=== PATIENT | female | born 1985 | race Caucasian/White ===

== ENCOUNTER 2017-03-08 06:00 | Inpatient (IN) ==
[2017-03-08] MEDS ORDERED: Naloxone 0.4 MG/ML INJ IVP PRN (06:16)
[2017-03-08] MEDS ORDERED: miSOPROStol 25 MCG TABLET VG PRN (06:16)
[2017-03-08] MEDS ORDERED: Metoclopramide 10 MG/2 ML VIAL IVP PRN (06:16)
[2017-03-08] MEDS ORDERED: Famotidine 20 MG/2 ML VIAL IVP PRN (06:16)
[2017-03-08] MEDS ORDERED: Ondansetron 4 MG/2 ML VIAL IVP PRN (06:16)
[2017-03-08] MEDS ORDERED: Ringers Solution, Lactated 1,000 ML IVC SCH (06:30)
[2017-03-08 06:54] LABS: Basophils # 0.1 K/mcL (0.0-0.2); Basophils % 0.5 %; Eosinophils # 0.1 K/mcL (0.0-0.6); Eosinophils % 1.1 %; Hematocrit 35.7 % (35.3-44.9); Hemoglobin 12.4 g/dL (11.5-15.4); Immature Granulocytes % 2.5 % (0-4); Lymphocytes # 2.3 K/mcL (0.6-4.6); Lymphocytes % 20.5 %; Mean Corpuscular HGB Conc 34.7 g/dL (31.6-35.5); Mean Corpuscular Hemoglobin 32.5 pg (28.0-33.3); Mean Corpuscular Volume 93.5 fL (83.0-100.0); Mean Platelet Volume 9.3 fL (9.4-12.4); Monocytes # 1.2 K/mcL (0.0-1.3); Monocytes % 10.5 %; Neutrophils # 7.1 K/mcL (1.6-8.9); Platelet Count 262 K/mcL (140-400); Red Blood Count 3.82 M/mcL (3.82-4.97); Red Cell Distribution Width 13.2 % (11.5-14.5); Segmented Neutrophils % 64.9 %
--- NOTE | 2017-03-08 07:51 | OB/GYN History & Physical ---
Date of Encounter: 03/08/17 Time of Encounter: 07:45 Assessment and Plan (1) and not yet delivered in third trimester Current visit: Yes Status: Acute (2) 39 weeks gestation of Current visit: Yes Status: Acute (3) Elective induction of labor planned Current visit: Yes Status: Acute We will induce with Montes catheter and Cytotec plan is to anticipate vaginal deliver History of Present Illness HPI: Ms. Canas is a 31 year old female 3 para 2 at 39-5/7 weeks who presented to labor and delivery for induction of labor secondary to term . Patient's course has been unremarkable. Patient's been having occasional contractions but nothing time of all denies any leaking of fluid good movement. Patient is Rh- and GBS negative rubella positive Past Med Surg Social Fam HX - Past Medical History Source: patient, old records reviewed Medical history: no medical history Psychiatric history: depression - Past Surgical History Surgical History: no surgical history - Social History Smoking Status: Never smoker Smokeless Tobacco Status: No Alcohol use: occasionally Drug use: none Occupational status: unemployed Current living situation: Home - Independent Activity Level: Independent ambulation Recent Out of Country Travel Within the Last 8 Weeks: No Exposure or Possible Exposure to Illness During Travel: No - Family History Mother Age: 52 Living Status: Still Living Hx Family Cardiac Disorders: Yes (htn) Hx Family Respiratory Disorders: No Hx Family Cancer: No Hx Family GI Disorders: No Hx Family Genitourinary Disorders: No Hx Family Endocrine Disorder: Yes (diabetic) Hx Family Musculoskeletal Disorders: No Hx Family Neuromuscular Disorders: No Hx Family Neurologic Disorders: No Hx Family HEENT Disorders: No Hx Family Autoimmune Disorders: No Hx Family Reproductive Disorders: No Hx Family Psychosocial Disorders: No Hx Family Medical Disorders: No - Additional Family History Additional family history: Family history noncontributory Obstetrical History - Pregnancies : 3 Para: 2 Livin Medications and Allergies Formula Tablet 1 tab PO DAILY 03/08/17 [History] Protonix 10 mg PO DAILY 03/08/17 [History] 3 Allergy/AdvReac Type Severity Reaction Status Date / Time No Known Allergies Allergy Verified 08/12/15 09:11 Exam - Vital Signs Vital signs: Initial Vital Signs Temp Pulse Resp BP 97 F L 120 16 147/80 03/08/17 06:35 03/08/17 06:35 03/08/17 06:35 03/08/17 06:35 - Constitutional Constitutional: well developed, well nourished, no acute distress, obese - HEENT HEENT: PERRL, Mucus Membranes Moist - Neck Neck exam: full ROM - Lungs Respiratory exam: CTAB - Cardiovascular Cardiovascular exam: irregular rhythm - Abdomen Abdomen: Present: gravid ( heart tones 140s reactive occasional contractions) - Cervix Dilation: 2 Effacement: 70 Station: -2 (The Montes catheter placed and Cytotec 25 g placed vaginally) Results Result Diagrams: 03/08/17 06:25 Abnormal lab results MPV 9.3 fL (9.4-12.4) L 03/08/17 06:25 All other labs normal. - VTE Reasons for not Prescribing Prophylaxis: Treatment not Indicated - Low risk for VTE
[2017-03-08 09:46] LABS: Amphetamine Screen,Urine Negative ng/mL (Cutoff=1000); Barbiturate Screen,Urine Negative ng/mL (Cutoff=200); Benzodiazepines Screen,Urine Negative ng/mL (Cutoff=200); Cannabinoid Screen,Urine Negative ng/mL (Cutoff = 50); Cocaine Screen,Urine Negative ng/mL (Cutoff= 300); Opiate Screen,Urine Negative ng/mL (Cutoff=300); Phencyclidine Screen,Urine Negative ng/mL (Cutoff=25)
--- NOTE | 2017-03-08 09:53 | OB Labor Progress Note ---
Date of Encounter: 03/08/17 Time of Encounter: 09:51 Labor Progress Note - Subjective Subjective: Patient in bed. Discussed POC with patient. Patient denies any questions or concerns. - Cervix Cervix: 4/80/-1 - Heart Tones Heart Tones: 135 bpm moderate variability +15x15 accels no decels noted. cAt. 1 tracing - Alturas Alturas: 5-6 min apart - Interventions Interventions: SVE, AROM moderate amount of clear fluid. IUPC placed without difficulty. FSE also placed but would not read FHR. - Plan Plan: Continue labor management. Nubain or epidural for pain management.
[2017-03-08] MEDS ORDERED: Epidural Premix (fent/bupiv) 110 ML EP ONE ×2 (10:07→18:01)
[2017-03-08] MEDS ORDERED: Epidural Premix (fent/bupiv) 110 ML EP SCH (11:15)
--- NOTE | 2017-03-08 11:49 | Anesthesia Evaluation PreOp ---
Date of Encounter: 03/08/17 Time of Encounter: 10:15 - Past History Planned Operation: KRISTINE Cardiac History: Denies any Significant Hx Pulmonary History: Denies Any Significant HX BUSINESS OPERATIONS ANALYST History: Denies Any Significant HX Other Medical History: Denies Any Significant HX Anesthesia History: No Prior Anesthetic Complications : Yes Test: Positive Alcohol Use: none, occasionally Drug use: none Medications and Allergies Formula Tablet 1 tab PO DAILY 03/08/17 [History] Protonix 10 mg PO DAILY 03/08/17 [History] 3 Allergy/AdvReac Type Severity Reaction Status Date / Time No Known Allergies Allergy Verified 08/12/15 09:11 - Meds/Allergy Pre-op Review Medications Reviewed: Yes Allergies Reviewed: Yes Beta Blockers on Current Med List: No Anesthesia Results - Labs 03/08/17 06:25 Anesthesia Exam Height: 66 Weight: 126KG NPO (# of Hours): MN Pain Scale: 0 - HEENT Pupil (Motor): Pupils equal Mallampati: II Oral Opening: Greater than 3 - BUSINESS OPERATIONS ANALYST LOC: Oriented BUSINESS OPERATIONS ANALYST Motor: Normal RUE, Normal LUE, Normal RLE, Normal LLE, Normal Face BUSINESS OPERATIONS ANALYST Sensory: Normal: RUE, LUE, RLE, LLE, Face - Cardiac Rhythm: Regular Murmur: None JVD: No Carotid Bruit: No - Pulmonary Breath Sounds: bilateral Clear Respiratory Effort: Symmetrical Anesthesia Assess/Plan ASA Score: 2 Modified Floridalma Scale for Level of Consciousness: Cooperative, oriented, and tranquil Anesthetic Plan: Regional Autologous Blood: No Monitoring Plan: Standard Monitors
--- NOTE | 2017-03-08 11:53 | Anesthesia Procedures ---
Date of Encounter: 03/08/17 Time of Encounter: 10:15 Procedures: Anesthesia - Epidural/Spinal Patient ID/Chart reviewed: Yes Patient examined: Yes OB Eval: Gestational age: 39 OB Eval: : 4 OB Eval: Hx Para: 3 OB Eval: Contractions: Stressed pattern Consent Obtained: Yes Supplemental Oxygen: None/Room Air Site Prep: Aseptic Technique, Sterile prep and drape, Povidone-Iodine 1% Patient position: upright Local Anesthetic: Lidocaine 1% Amount of Local Anesthetic used: 3 Touhy Needle Gauge: 18 Touhy Needle Depth (cm): 6 Catheter Depth at Skin (cm): 9 Test Dose Result: Negative Infusion Med: 0.125% Bupivacaine w/ 2 mcg/ml Fentanyl Infusion Rate (mls/hr): [address]: Tegaderm Interspace Used: L4-L5 Loss of Resistance ([place]): Yes Blood: No CSF: No Paresthesia: No Vitals + FHT's: stable throughout
--- NOTE | 2017-03-08 12:54 | OB Labor Progress Note ---
Date of Encounter: 03/08/17 Time of Encounter: 12:50 Labor Progress Note - Subjective Subjective: Patient is comfortable with epidural and Monets catheters out - Cervix Cervix: 5/80/-3 - Heart Tones Heart Tones: Heart tones 140s reactive - Mooar Mooar: Contractions every 3-5 minutes irregular - Plan Plan: Continue current care and anticipate vaginal delivery patient might need augmentation with Pitocin if contractions do not get closer
[2017-03-08] MEDS ORDERED: Oxytocin 20 units/ LR 1000 mL 20 UNIT/1,000 ML BAG IVC SCH ×2 (17:00→22:49)
--- NOTE | 2017-03-08 22:10 | OB/GYN Procedure Note ---
Delivery - Delivery Date: 03/08/17 Provider: Edgardo De La Fuenet Intrapartum events: none Delivery induction: barrios, misoprostol Delivery augmentation: rupture of membranes Delivery monitor: external FHT, external uterine, internal FHT, internal uterine Anesthesia: epidural Estimated Blood Loss: 100 - Infant (s) Infant A Infant Delivery Date: 03/08/17 Delivery Time: 21:04 Presentation: vertex Position: ERIKA Route of delivery: Gender: Male Viability: Viable Pounds: 9 Ounces: 2 Weight Gram: 4.135 kg at 1 minute: 8 at 5 mins: 9 Shoulder Dystocia: encountered Shoulder Dystocia Maneuvers: Ismael maneuver Specimens collected: cord blood Placenta: spontaneous Cord: nuchal cord, 3 umbilical vessels, nuchal reduced - Repair Episiotomy: none Laceration Description: None - Complications Delivery complications: none Delivery comments: Patient is a 31-year-old 3 para 2 at 39-5/7 weeks who is brought in for an induction labor secondary with favorable cervix. Patient has a history of a large baby with previous with a dystocia last ultrasound placed the baby at approximately the same gestational weight and recommended we get her delivered around the due date. Patient was brought to labor and delivery where Barrios catheter and Cytotec was placed. Barrios catheter fell out within a couple hours patient did receive an epidural when she was artificially ruptured with clear fluid. Patient progressed to complete started having some deep variable decelerations we had the patient push but the baby was not coming down and appeared to be in an occiput posterior presentation. We able to get the baby to recover get the patient out of the stirrups and allowed the patient to labor down some more. She continued to have variables then started having low deep variables we get the patient back up in the stirrups this time patient was able to push more effectively and was able to bring the head down. After approximately 10 minutes of pushing patient delivered a viable male in right occiput anterior presentation at 2104. There was a nuchal cord 1 loose and reduced it was no meconium the infant was bulb suctioned on the abdomen. Apgars were 8 at 1 minute, 9 at 5 minutes, weight was 9 lbs. 2 oz. We did have a shoulder dystocia reduced with Ismael maneuver. Placenta was delivered spontaneously with a three-vessel cord, cop examiner Dr. De La Fuente, anesthesia epidural, estimated blood loss was 100 mL. Perineum cervix and vagina was well visualized intact. Patient tolerated the delivery well she will be observed one hour before being taken floor. - Disposition Mom disposition: stable in LDR disposition: stable in LDR
[2017-03-08] MEDS ORDERED: Acetaminophen 325 MG TABLET PO PRN (22:49)
[2017-03-08] MEDS ORDERED: Measles/Mumps/Rubella Vacc 0.5 ML VIAL SQ PRN (22:49)
[2017-03-08] MEDS ORDERED: Rho Immune Globulin 1,500 UNIT SYRINGE IM PRN (22:49)
[2017-03-09] MEDS: Ibuprofen 600 MG TABLET PO PRN ×3 (00:42→20:09)
[2017-03-09 06:52] LABS: Basophils % 0.2 %; Eosinophils % 0.2 %; Hematocrit 33.2 % (35.3-44.9); Hemoglobin 11.2 g/dL (11.5-15.4); Immature Granulocytes % 1.3 % (0-4); Lymphocytes # 1.7 K/mcL (0.6-4.6); Mean Corpuscular HGB Conc 33.7 g/dL (31.6-35.5); Mean Corpuscular Hemoglobin 32.3 pg (28.0-33.3); Mean Corpuscular Volume 95.7 fL (83.0-100.0); Mean Platelet Volume 9.3 fL (9.4-12.4); Monocytes # 1.5 K/mcL (0.0-1.3); Monocytes % 8.7 %; Neutrophils # 13.9 K/mcL (1.6-8.9); Platelet Count 206 K/mcL (140-400); Red Blood Count 3.47 M/mcL (3.82-4.97); Red Cell Distribution Width 13.5 % (11.5-14.5); Segmented Neutrophils % 79.6 %
[2017-03-09] MEDS ORDERED: NON-FORMULARY MEDICATION 1 EACH EACH (Prenatal Formula Tablet 1 TAB) PO SCH (09:00)
[2017-03-09] MEDS: Prenatal Vit/FA 1 EACH TABLET PO SCH (09:29)
--- NOTE | 2017-03-09 14:29 | Electrocardiograph Report ---
[place] [id number] Test Date: 2017-03-09 [facility] Room: [facility] Gender: F Top Carrier: : 1985 Requested By: Faizan Hager Order Number: [id number] Reading MD: Christy Fagan Measurements Intervals [place] Rate: 96 P: 65 WV: 148 QRS: 42 QRSD: 73 T: 28 QT: 319 QTc: 373 Interpretive Statements SINUS RHYTHM Electronically Signed On 03-09-2017 14:28:27 EDT by Christy Fagan
--- NOTE | 2017-03-09 15:04 | Discharge Summary ---
Date of Encounter: 03/09/17 Time of Encounter: 08:30 - Discharge Diagnosis (1) 39 weeks gestation of Priority: Primary Status: Acute (2) Vaginal delivery Priority: Primary Status: Acute (3) anemia Priority: Primary Status: Acute - Discharge Medications Prescriptions: Ibuprofen [Motrin] 600 mg PO Q6HR PRN #60 tablet PRN Reason: Cramping Docusate [Colace] 100 mg PO BID #30 capsule Ferrous Sulfate 325 mg PO DAILY #30 tablet Polyethylene Glycol 3350 [MiraLAX] 17 gm PO DAILY PRN #10 powd.pack PRN Reason: Constipation Home Medications: Formula Tablet 1 tab PO DAILY 03/08/17 [History] Protonix 10 mg PO DAILY 03/08/17 [History] Docusate [Colace] 100 mg PO BID #30 capsule 03/09/17 [Rx] Ferrous Sulfate 325 mg PO DAILY #30 tablet 03/09/17 [Rx] Ibuprofen [Motrin] 600 mg PO Q6HR PRN #60 tablet 03/09/17 [Rx] Polyethylene Glycol 3350 [MiraLAX] 17 gm PO DAILY PRN #10 powd.pack 03/09/17 [Rx ] Allergies/Adverse Reactions: 3 Allergy/AdvReac Type Severity Reaction Status Date / Time No Known Allergies Allergy Verified 08/12/15 09:11 Data Procedures and tests throughout hospitalization: Laboratory Tests 03/08/17 03/08/17 03/08/17 06:25 06:25 22:25 WBC 11.0 RBC 3.82 Hgb 12.4 Hct 35.7 MCV 93.5 MCH 32.5 MCHC 34.7 RDW 13.2 Plt Count 262 MPV 9.3 L Immature Gran % 2.5 Seg Neutrophils % 64.9 Lymphocytes % 20.5 Monocytes % 10.5 Eosinophils % 1.1 Basophils % 0.5 Neutrophils # 7.1 Lymphocytes # 2.3 Monocytes # 1.2 Eosinophils # 0.1 Basophils # 0.1 Urine Opiates Screen Negative Ur Barbiturates Screen Negative Ur Phencyclidine Scrn Negative Ur Amphetamines Screen Negative U Benzodiazepines Scrn Negative Urine Cocaine Screen Negative U Marijuana (THC) Screen Negative Screen NEGATIVE Baby's Blood Type O RH POSITIVE Mother's Blood Type O RH NEGATIVE Rhogam Indicated YES Rhogam Req for Mother 1 03/09/17 06:31 WBC 17.4 H D RBC 3.47 L Hgb 11.2 L Hct 33.2 L MCV 95.7 MCH 32.3 MCHC 33.7 RDW 13.5 Plt Count 206 MPV 9.3 L Immature Gran % 1.3 Seg Neutrophils % 79.6 Lymphocytes % 10.0 Monocytes % 8.7 Eosinophils % 0.2 Basophils % 0.2 Neutrophils # 13.9 H Lymphocytes # 1.7 Monocytes # 1.5 H Eosinophils # 0.0 Basophils # 0.0 Urine Opiates Screen Ur Barbiturates Screen Ur Phencyclidine Scrn Ur Amphetamines Screen U Benzodiazepines Scrn Urine Cocaine Screen U Marijuana (THC) Screen Screen Baby's Blood Type Mother's Blood Type Rhogam Indicated Rhogam Req for Mother Labs on day of discharge: Labs from last 24 hours 03/09/17 03/08/17 06:31 22:25 WBC 17.4 H D RBC 3.47 L Hgb 11.2 L Hct 33.2 L MCV 95.7 MCH 32.3 MCHC 33.7 RDW 13.5 Plt Count 206 MPV 9.3 L Immature Gran % 1.3 Seg Neutrophils % 79.6 Lymphocytes % 10.0 Monocytes % 8.7 Eosinophils % 0.2 Basophils % 0.2 Neutrophils # 13.9 H Lymphocytes # 1.7 Monocytes # 1.5 H Eosinophils # 0.0 Basophils # 0.0 Screen NEGATIVE Baby's Blood Type O RH POSITIVE Mother's Blood Type O RH NEGATIVE Rhogam Indicated YES Rhogam Req for Mother 1 Date of admission: 03/08/17 06:09 Primary care physician: Rubin Ambriz MD Consults: 03/08/17 22:49 Consult to Talent Acquisition Partner [CONS] Routine Comment: Vaginal delivery, consult needed Discharging clinician: Faizan Hager Anticipated date of discharge: 03/09/17 - Discharge Instructions Follow Up With: Rubin Ambriz MD [Primary Care Provider] - Hospital Course Reason for admission: induction of labor Delivery: Episiotomy: none Laceration: none Other procedures: none complications: none Discharge diagnosis: IUP at term delivered [place] baby: male Hospital course: Patient is a 31-year-old 3 para 3 that was at 39-5/7 weeks who was brought in for an induction labor secondary with favorable cervix. Patient has a history of a large baby with previous with a dystocia last ultrasound placed the baby at approximately the same gestational weight and recommended we get her delivered around the due date. Patient was brought to labor and delivery where Montes catheter and Cytotec was placed. Montes catheter fell out within a couple hours patient did receive an epidural when she was artificially ruptured with clear fluid. Patient progressed to complete started having some deep variable decelerations we had the patient push but the baby was not coming down and appeared to be in an occiput posterior presentation. We able to get the baby to recover get the patient out of the stirrups and allowed the patient to labor down some more. She continued to have variables then started having low deep variables we get the patient back up in the stirrups this time patient was able to push more effectively and was able to bring the head down. After approximately 10 minutes of pushing patient delivered a viable male infant in right occiput anterior presentation at 2104. There was a nuchal cord 1 loose and reduced it was no meconium the infant was bulb suctioned on the abdomen. Apgars were 8 at 1 minute, 9 at 5 minutes, infant weight was 9 lbs. 2 oz. We did have a shoulder dystocia reduced with Ismael maneuver. Placenta was delivered spontaneously with a three-vessel cord, business objects analyst Dr. De La Fuente, anesthesia epidural, estimated blood loss was 100 mL. Perineum cervix and vagina was well visualized intact. Patient tolerated the delivery well she will be observed one hour before being taken floor. Time Attestation: Total time spent providing and/or coordinating discharge services: Exam - Constitutional Vitals: Temp Pulse Resp BP Pulse Ox 97.8 F 100 14 109/64 99 03/09/17 04:30 03/09/17 04:30 03/09/17 04:30 03/09/17 04:30 03/09/17 04:30
--- NOTE | 2017-03-09 15:30 | OB/GYN Progress Note ---
Date of Encounter: 03/09/17 Time of Encounter: 08:30 - Assessment and Plan (1) Chest pain Current Visit: Yes Status: Acute Given the description fits the criteria for typical chest pain, an EKG was ordered and revealed normal sinus rhythm with no changes indicative of ischemia. Qualifiers: Qualified Code(s): R07.9 - Chest pain, unspecified (2) 39 weeks gestation of Current Visit: Yes Status: Acute (3) Vaginal delivery Current Visit: Yes Status: Acute Patient is meeting milestones. Pain well controlled. - continue current pain meds. (4) anemia Current Visit: Yes Status: Acute Hgb stable at 11.2 -continue iron supplements. (5) Constipation Current Visit: Yes Status: Acute - Miralax PRN. Qualifiers: Qualified Code(s): K59.00 - Constipation, unspecified Subjective - Subjective Principal diagnosis: S/P vaginal delivery Interval history: When seen today patient mentioned that she experienced some chest pain the night prior. She describes it as mid-sternal, occurred when she got out of bed, and was relieved with rest. She says it lasted a few minutes. She denies shortness of breath and dyspnea. She currently denies any chest pain. She says that she is in good mood and is able to breast feed baby. The baby is doing well. She says the vaginal bleeding is minimal and improving. She denies any abdominal pain. She denies MANNING, dizziness, nausea, and vomiting. Patient reports: appetite normal, voiding normally, pain well controlled, ambulating normally [place]: doing well, nursing well Objective - Latest Vital Signs Latest vital signs: Vital Signs Temp Pulse Resp BP Pulse Ox 03/09/17 04:30 97.8 F 100 14 109/64 99 03/09/17 00:45 98.2 F 98 16 138/84 97 03/08/17 23:45 98.4 F 98 16 127/76 98 03/08/17 22:45 99 F 99 16 134/75 96 Intake and Output 03/08/17 03/09/17 03/09/17 23:59 07:59 15:59 Intake Total 240 / 240 Output Total 1300 / 1300 1200 / 1200 960 / 960 Balance -1300 / -1300 -1200 / -1200 -720 / -720 Intake: Oral 240 / 240 Output: Urine 1300 / 1300 1200 / 1200 960 / 960 Other: Meal Breakfast Percent of Meal Consumed 100% Stool Size Small Stool Consistency formed # Bowel Movements 1 Weight 125.277 kg Patient Weight 03/09/17 23:59 Weight 125.277 kg - Exam Lungs: bilateral: normal Chest: Normal S1, Normal S2 Extremities: Present: normal Abdomen: Present: normal appearance, soft, gravid. Absent: tenderness Uterus: Present: normal, firm Comments: Chest: no costochondral tenderness noted. Neuro: DTRs +2 bilaterally in upper and lower extremities. - Labs Labs: Laboratory Results - last 24 hr 03/08/17 03/09/17 22:25 06:31 WBC 17.4 H D RBC 3.47 L Hgb 11.2 L Hct 33.2 L MCV 95.7 MCH 32.3 MCHC 33.7 RDW 13.5 Plt Count 206 MPV 9.3 L Immature Gran % 1.3 Seg Neutrophils % 79.6 Lymphocytes % 10.0 Monocytes % 8.7 Eosinophils % 0.2 Basophils % 0.2 Neutrophils # 13.9 H Lymphocytes # 1.7 Monocytes # 1.5 H Eosinophils # 0.0 Basophils # 0.0 Screen NEGATIVE Baby's Blood Type O RH POSITIVE Mother's Blood Type O RH NEGATIVE Rhogam Indicated YES Rhogam Req for Mother 1
[2017-03-10] MEDS: Ibuprofen 600 MG TABLET PO PRN (05:20)
[2017-03-10 08:45] VITALS: BP 134/85
--- NOTE | 2017-03-10 08:48 | Discharge Summary ---
Date of Encounter: 03/10/17 Time of Encounter: 08:35 - Discharge Diagnosis (1) 39 weeks gestation of Priority: Primary Status: Acute (2) Vaginal delivery Priority: Primary Status: Resolved Comments: Pt states feels well. Pain well managed on po pain medication. . Desires discharge (3) Constipation Priority: Secondary Status: Acute Qualifiers: Constipation type: unspecified constipation type Qualified Code(s): K59.00 - Constipation, unspecified (4) Chest pain Priority: Secondary Status: Resolved Comments: EKG normal. Qualifiers: Qualified Code(s): R07.9 - Chest pain, unspecified - Discharge Medications Prescriptions: Ibuprofen [Motrin] 600 mg PO Q6HR PRN #60 tablet PRN Reason: Cramping Docusate [Colace] 100 mg PO BID #30 capsule Ferrous Sulfate 325 mg PO DAILY #30 tablet Polyethylene Glycol 3350 [MiraLAX] 17 gm PO DAILY PRN #8 powd.pack PRN Reason: Constipation Home Medications: Formula Tablet 1 tab PO DAILY 03/08/17 [History] Protonix 10 mg PO DAILY 03/08/17 [History] Docusate [Colace] 100 mg PO BID #30 capsule 03/09/17 [Rx] Ferrous Sulfate 325 mg PO DAILY #30 tablet 03/09/17 [Rx] Ibuprofen [Motrin] 600 mg PO Q6HR PRN #60 tablet 03/09/17 [Rx] Polyethylene Glycol 3350 [MiraLAX] 17 gm PO DAILY PRN #8 powd.pack 03/10/17 [Rx] Allergies/Adverse Reactions: 3 Allergy/AdvReac Type Severity Reaction Status Date / Time No Known Allergies Allergy Verified 08/12/15 09:11 Data Procedures and tests throughout hospitalization: Laboratory Tests 03/08/17 03/08/17 03/08/17 06:25 06:25 22:25 WBC 11.0 RBC 3.82 Hgb 12.4 Hct 35.7 MCV 93.5 MCH 32.5 MCHC 34.7 RDW 13.2 Plt Count 262 MPV 9.3 L Immature Gran % 2.5 Seg Neutrophils % 64.9 Lymphocytes % 20.5 Monocytes % 10.5 Eosinophils % 1.1 Basophils % 0.5 Neutrophils # 7.1 Lymphocytes # 2.3 Monocytes # 1.2 Eosinophils # 0.1 Basophils # 0.1 Urine Opiates Screen Negative Ur Barbiturates Screen Negative Ur Phencyclidine Scrn Negative Ur Amphetamines Screen Negative U Benzodiazepines Scrn Negative Urine Cocaine Screen Negative U Marijuana (THC) Screen Negative Screen NEGATIVE Baby's Blood Type O RH POSITIVE Mother's Blood Type O RH NEGATIVE Rhogam Indicated YES Rhogam Req for Mother 1 03/09/17 06:31 WBC 17.4 H D RBC 3.47 L Hgb 11.2 L Hct 33.2 L MCV 95.7 MCH 32.3 MCHC 33.7 RDW 13.5 Plt Count 206 MPV 9.3 L Immature Gran % 1.3 Seg Neutrophils % 79.6 Lymphocytes % 10.0 Monocytes % 8.7 Eosinophils % 0.2 Basophils % 0.2 Neutrophils # 13.9 H Lymphocytes # 1.7 Monocytes # 1.5 H Eosinophils # 0.0 Basophils # 0.0 Urine Opiates Screen Ur Barbiturates Screen Ur Phencyclidine Scrn Ur Amphetamines Screen U Benzodiazepines Scrn Urine Cocaine Screen U Marijuana (THC) Screen Screen Baby's Blood Type Mother's Blood Type Rhogam Indicated Rhogam Req for Mother Labs on day of discharge: Labs from last 24 hours 03/08/17 22:25 Screen NEGATIVE Rhogam Req for Mother 1 Date of admission: 03/08/17 06:09 Primary care physician: Rubin Ambriz MD Consults: 03/08/17 22:49 Consult to Radiation Oncology Manager [CONS] Routine Comment: Vaginal delivery, consult needed Discharging clinician: Faizan Hager Anticipated date of discharge: 03/10/17 - Patient Status Disposition: Home, Self-Care Condition: Good Overall status at discharge: patient is progressing back to baseline - Discharge Instructions Follow Up With: Rubin Ambriz MD [Primary Care Provider] - - Diet and Activity Activity: resume usual activities as tolerated Diet: low fat, low cholesterol (s), regular diet Hospital Course Reason for admission: induction of labor, IUP at term Delivery: Episiotomy: none Laceration: none Other procedures: none complications: none Discharge diagnosis: IUP at term delivered baby: male Hospital course: Ms. Canas is a 31 year old female 3 para 3 that was at 39-5/7 weeks who presented to labor and delivery for induction of labor secondary to term . Patient's course was unremarkable. Patient's was having occasional contractions. Denies any leaking of fluid good movement. Patient has a history of a large baby with previous with a dystocia last ultrasound placed the baby at approximately the same gestational weight and recommended we get her delivered around the due date. Patient was brought to labor and delivery where Barrios catheter and Cytotec was placed. Barrios catheter fell out within a couple hours patient did receive an epidural when she was artificially ruptured with clear fluid. Patient progressed to complete started having some deep variable decelerations we had the patient push but the baby was not coming down and appeared to be in an occiput posterior presentation. We able to get the baby to recover get the patient out of the stirrups and allowed the patient to labor down some more. She continued to have variables then started having low deep variables we get the patient back up in the stirrups this time patient was able to push more effectively and was able to bring the head down. After approximately 10 minutes of pushing patient delivered a viable male infant in right occiput anterior presentation at 2104. There was a nuchal cord 1 loose and reduced it was no meconium the infant was bulb suctioned on the abdomen. Apgars were 8 at 1 minute, 9 at 5 minutes, infant weight was 9 lbs. 2 oz. We did have a shoulder dystocia reduced with Ismael maneuver. Placenta was delivered spontaneously with a three-vessel cord, dope edger Dr. De La Fuente, anesthesia epidural, estimated blood loss was 100 mL. Perineum cervix and vagina was well visualized intact. Patient tolerated the delivery well she will be observed one hour before being taken floor. Patient was complaining of chest pain two nights ago. An EKG was done and revealed normal sinus rhythm with no changes indicative of ischemia. When seen today, she denies any chest pain. Patient says that she is doing fine and in good mood. She still complains of some abdominal discomfort when she moves and is relieved by rest. She has minor vaginal bleeding which has been improving. She denies any MANNING, dizziness, shortness of breath, nausea, or vomiting. She is still complaining of constipation, for which she will be discharged with colace and Miralax. Patient was slightly anemic at hgb 11.2. She will be discharged with iron supplements. She has a follow-up appointment with Dr. De La Fuente on 04/08/17. - Delivery Date: 03/08/17 Provider: Edgardo De La Fuente Intrapartum events: none Delivery induction: barrios, misoprostol Delivery augmentation: rupture of membranes Delivery monitor: external FHT, external uterine, internal FHT, internal uterine Anesthesia: epidural Estimated Blood Loss: 100 - (s) A Infant Delivery Date: 03/08/17 Delivery Time: 21:04 Presentation: vertex Position: ERIKA Route of delivery: Gender: Male Viability: Viable Pounds: 9 Ounces: 2 Weight Gram: 4.135 kg at 1 minute: 8 at 5 mins: 9 Shoulder Dystocia: encountered Shoulder Dystocia Maneuvers: Ismael maneuver Specimens collected: cord blood Placenta: spontaneous Cord: nuchal cord, 3 umbilical vessels, nuchal reduced - Repair Episiotomy: none Laceration Description: None Time Attestation: Total time spent providing and/or coordinating discharge services: Exam - Constitutional Vitals: Temp Pulse Resp BP Pulse Ox 98.1 F 86 18 134/85 98 03/10/17 08:44 03/10/17 08:44 03/10/17 08:44 03/10/17 08:44 03/10/17 08:44 General appearance IM: A&O X 3, obese - Respiratory Respiratory exam: Present: CTAB - Cardiovascular Cardiovascular exam IM: Present: RRR, +S1, +S2 - GI/Abdominal GI/Abdominal exam IM: normal bowel sounds, soft - Uterine Tone: Firm - Extremities Exam Extremities exam IM: Present: full ROM, normal capillary refill, pedal edema (+ 1 pitting edema bilaterally), radial pulses palpable and symmetrical. Absent: calf tenderness - Neurological Exam Neurological exam: reflexes normal - Psychiatric Additional comments: reports good mood
[2017-03-10] MEDS: Prenatal Vit/FA 1 EACH TABLET PO SCH (09:18)
== END 2017-03-10 12:56 | disposition home or self-care (01) | DRG 560 ==
LOC: 1NENULAB 06:09 → 1NENUOBS 22:34
PROVIDERS: ADMIT Obstetrics & Gynecology; ATTEND Obstetrics & Gynecology

== ENCOUNTER 2019-03-23 21:31 | Inpatient (IN) ==
[2019-03-23 20:20] LABS: Basophils % 0.4 %; Eosinophils # 0.1 K/mcL (0.0-0.6); Eosinophils % 0.7 %; Hematocrit 34.9 % (35.3-44.9); Hemoglobin 11.9 g/dL (11.5-15.4); Immature Granulocytes % 2.2 % (0-4); Lymphocytes # 1.5 K/mcL (0.6-4.6); Lymphocytes % 17.4 %; Mean Corpuscular HGB Conc 34.1 g/dL (31.6-35.5); Mean Corpuscular Hemoglobin 32.8 pg (28.0-33.3); Mean Corpuscular Volume 96.1 fL (83.0-100.0); Mean Platelet Volume 9.7 fL (9.4-12.4); Monocytes # 0.9 K/mcL (0.0-1.3); Monocytes % 10.4 %; Neutrophils # 5.8 K/mcL (1.6-8.9); Platelet Count 235 K/mcL (140-400); Red Blood Count 3.63 M/mcL (3.82-4.97); Red Cell Distribution Width 12.9 % (11.5-14.5); Segmented Neutrophils % 68.9 %; White Blood Count 8.4 K/mcL (4.3-11.1)
[2019-03-23 20:26] LABS: Creatinine,Urine 61 mg/dL; Protein/Creatinine Ratio,Urine 0.15 mg/mg (0.00-0.20)
[2019-03-23 20:30] LABS: Amphetamine Screen,Urine Negative ng/mL (Cutoff=1000); Barbiturate Screen,Urine Negative ng/mL (Cutoff=200); Benzodiazepines Screen,Urine Negative ng/mL (Cutoff=200); Cannabinoid Screen,Urine Negative ng/mL (Cutoff = 50); Cocaine Screen,Urine Negative ng/mL (Cutoff= 300); Opiate Screen,Urine Negative ng/mL (Cutoff=300); Phencyclidine Screen,Urine Negative ng/mL (Cutoff=25)
[2019-03-23 21:11] LABS: Alanine Aminotransferase 21 Units/L (7-52); Aspartate Amino Transferase 18 Units/L (13-39); BUN/Creatinine Ratio 20 (6-26); Blood Urea Nitrogen 10 mg/dL (6-20); Lactate Dehydrogenase 181 Units/L (140-271); Uric Acid 3.8 mg/dL (2.3-7.6); eGFR For African Americans > 60 (> 60); eGFR For Non-African Americans > 60 (> 60)
[~2019-03-23 21:31] MED LIST: *HR* Nalbuphine 10 MG/ML AMPUL IVP PRN; Famotidine 20 MG/2 ML VIAL IVP PRN; Lidocaine 1% 20 ML MDV INFILT PRN; Metoclopramide 10 MG/2 ML VIAL IVP PRN; Naloxone 0.4 MG/ML INJ IVP PRN; Ondansetron 4 MG/2 ML VIAL IVP PRN; Oxytocin 20 units/ LR 1000 mL 20 UNIT/1,000 ML BAG IVC SCH
[2019-03-23] MEDS: miSOPROStol 25 MCG TABLET PO PRN (23:37)
[2019-03-24] MEDS: Ringers Solution, Lactated 1,000 ML IVC SCH ×2 (03:38→06:16)
[2019-03-24] MEDS: miSOPROStol 25 MCG TABLET PO PRN (03:48)
[2019-03-24] MEDS ORDERED: Epidural Premix (fent/bupiv) 110 ML EP SCH (04:00)
[2019-03-24] MEDS ORDERED: *HR* Promethazine 25 MG/ML VIAL IVP ONE (09:16)
[2019-03-24] MEDS ORDERED: Oxytocin 20 units/ LR 1000 mL 20 UNIT/1,000 ML BAG IVC ONE (12:48)
[2019-03-24] MEDS ORDERED: Acetaminophen 325 MG TABLET PO PRN (12:48)
[2019-03-24] MEDS ORDERED: Benzocaine/Menthol 56 GM AEROSOL SPRAY TP PRN (12:48)
[2019-03-24] MEDS ORDERED: Lanolin 7 G OINT...G. TP PRN (12:48)
[2019-03-24] MEDS ORDERED: Rho Immune Globulin 1,500 UNIT SYRINGE IM PRN (12:48)
[2019-03-24] MEDS ORDERED: Oxytocin 20 units/ LR 1000 mL 20 UNIT/1,000 ML BAG IVC SCH (13:00)
[2019-03-24] MEDS: Ibuprofen 600 MG TABLET PO PRN (20:07)
[2019-03-25] MEDS: Ibuprofen 600 MG TABLET PO PRN ×2 (07:55→13:36)
[2019-03-25 08:16] LABS: Basophils % 0.2 %; Eosinophils # 0.1 K/mcL (0.0-0.6); Eosinophils % 0.7 %; Hemoglobin 11.8 g/dL (11.5-15.4); Immature Granulocytes % 1.2 % (0-4); Lymphocytes # 1.7 K/mcL (0.6-4.6); Lymphocytes % 17.4 %; Mean Corpuscular HGB Conc 33.7 g/dL (31.6-35.5); Mean Corpuscular Hemoglobin 32.8 pg (28.0-33.3); Mean Corpuscular Volume 97.2 fL (83.0-100.0); Mean Platelet Volume 9.2 fL (9.4-12.4); Monocytes # 0.8 K/mcL (0.0-1.3); Monocytes % 7.8 %; Neutrophils # 7.2 K/mcL (1.6-8.9); Platelet Count 220 K/mcL (140-400); Red Cell Distribution Width 13.2 % (11.5-14.5); Segmented Neutrophils % 72.7 %; White Blood Count 9.9 K/mcL (4.3-11.1)
[2019-03-25] MEDS ORDERED: Prenatal Vit/FA 1 EACH TABLET PO SCH (09:00)
[2019-03-25 15:56] VITALS: BP 138/83
== END 2019-03-25 21:00 | disposition home or self-care (01) | DRG 560 ==
LOC: 1NENULAB → 1NENUOBS 03-24 15:25
PROVIDERS: ADMIT Registered Nurse; ATTEND Registered Nurse